=== PATIENT | female | born 1985 | race Caucasian/White ===

== ENCOUNTER 2021-03-22 05:17 | Emergency (ER) | payer MEDICAID ==
[2021-03-21] MEDS: LACTATED RINGERS 1,000 ML IV SCH (23:28)
[2021-03-21 23:47] LABS: CLARITY URINE CLEAR (CLEAR); COLOR URINE YELLOW (YELLOW); KETONES URINE NEGATIVE (NEGATIVE); LEUKOCYTE ESTERASE URINE TRACE (NEGATIVE); NITRITE URINE NEGATIVE (NEGATIVE); OCCULT BLOOD URINE NEGATIVE (NEGATIVE); PROTEIN URINE NEGATIVE (NEGATIVE); SPECIFIC GRAVITY URINE 1.003 (1.005-1.030); UROBILINOGEN URINE 0.2 E.U./dL (0.2-1.0)
[2021-03-21 23:47] LABS: CHLORIDE 108 mEq/L (98-107)
[2021-03-21 23:55] LABS: BASOPHILS % 0.2 % (0.0-2.0); EOSINOPHILS % 1.6 % (0.0-5.0); HEMATOCRIT. 32.1 % (36.0-48.0); HEMOGLOBIN. 10.6 g/dL (12.0-16.0); LYMPHOCYTES % 25.3 % (20.0-50.0); MEAN CORPUSCULAR HEMOGLOBIN 24.7 pg (28.0-32.0); MEAN CORPUSCULAR VOLUME 74.8 fL (81.0-99.0); MEAN PLATELET VOLUME 10.3 fl (7.4-10.4); MONOCYTES % 7.8 % (2.0-8.0); NEUTROPHILS % 65.1 % (40.0-76.0); PLATELET 221 x1000/uL (130-400); RED CELL DISTRIBUTION WIDTH 23.6 % (11.6-14.6)
[~2021-03-22] VITALS: Ht 152.4 cm; Wt 59.0 kg
[2021-03-22 00:01] LABS: *BARBITURATES SCREEN URINE NEGATIVE (NEGATIVE); *BENZODIAZEPINES SCREEN URINE NEGATIVE (NEGATIVE); *COCAINE SCREEN URINE NEGATIVE (NEGATIVE); METHADONE URINE SCREEN NEGATIVE (NEGATIVE)
[2021-03-22 00:02] LABS: CANNABINOID URINE SCREEN NEGATIVE (NEGATIVE); OPIATES URINE SCREEN NEGATIVE (NEGATIVE); PHENCYCLIDINE URINE SCREEN NEGATIVE (NEGATIVE)
[2021-03-22 00:11] LABS: *AMPHETAMINES SCREEN URINE PRESUMTIVE POSITIVE (NEGATIVE)
[2021-03-22 00:19] LABS: HEPATITIS B SURFACE ANTIGEN NEGATIVE
[2021-03-22 01:44] LABS: D-DIMER 0.4 mg/L FEU (<0.50); INR 0.9; PARTIAL THROMBOPLASTIN TIME 25.1 sec (23.4-31.0); PROTHROMBIN TIME 10.1 sec (9.6-11.0)
[2021-03-22] MEDS: LACTATED RINGERS 1,000 ML IV SCH ×2 (04:12→08:57)
[~2021-03-22 05:17] MED LIST: CITRIC ACID/SODIUM CITRATE SOLN 30ML UDC PO SCH; LABETALOL HCL 20MG/4ML CARPUJECT IV SCH; LABETALOL HCL 5MG/ML VIAL 20ML IV PRN
[2021-03-22] MEDS ORDERED: CITRIC ACID/SODIUM CITRATE SOLN 15ML UDC PO SCH (06:00)
[2021-03-22] MEDS ORDERED: FAMOTIDINE 20MG/2ML VIAL IV STA (06:30)
[2021-03-22] MEDS ORDERED: SODIUM CHLORIDE 0.9% 1,000 ML IV ONE (06:30)
[2021-03-22 07:00] LABS: BASOPHILS % 0.4 % (0.0-2.0); EOSINOPHILS % 0.8 % (0.0-5.0); HEMOGLOBIN. 10.2 g/dL (12.0-16.0); LYMPHOCYTES % 26.2 % (20.0-50.0); MEAN CORPUSCULAR HEMOGLOBIN 24.8 pg (28.0-32.0); MEAN CORPUSCULAR VOLUME 75.3 fL (81.0-99.0); MEAN PLATELET VOLUME 9.8 fl (7.4-10.4); MONOCYTES % 6.4 % (2.0-8.0); NEUTROPHILS % 66.2 % (40.0-76.0); PLATELET 205 x1000/uL (130-400); RED BLOOD CELL COUNT 4.12 mill/uL (4.2-5.4); RED CELL DISTRIBUTION WIDTH 23.9 % (11.6-14.6)
[2021-03-22 07:06] LABS: CHLORIDE 108 mEq/L (98-107)
[2021-03-22 07:11] LABS: PROTHROMBIN TIME 10.6 sec (9.6-11.0)
[2021-03-22 10:40] VITALS: BP 133/66
[2021-03-22 12:56] LABS: PLATELET ESTIMATE NORMAL
[2021-03-27 15:09] LABS: AMPHETAMINE CONF URINE Positive (.)
== END 2021-03-22 11:41 | disposition home or self-care (01) ==
LOC: ER 05:17 → EDSTATUS 05:17 → ER 11:41
DX: O26.892 Other specified pregnancy related conditions, second trimester (principal); I10 Essential (primary) hypertension; Z3A.18 18 weeks gestation of pregnancy; F14.10 Cocaine abuse, uncomplicated
CPT/HCPCS: 36415; 76705; 76805; 80053; 80305; 81003; 83690; 84550; 85025; 85379; 85384; 85610; 85730; 86592; 86762; 86850; 86900; 86901; 87340; 96361; 96374; 96375; 99285; J3490; J7030